=== PATIENT | male | born 1960 | race Caucasian/White ===

== ENCOUNTER → 2016-12-03 | Outpatient (CLI) | payer BC ==
[~2016-12-03] MED LIST: AMLO-114 PO; LOSA1TAB38 PO; LPR25 PO; LSNUNK; METO-551 PO; OMEP40CA PO; RANI300T2 PO; TRAM-10 PO; WLLSR/150 PO
[2016-12-03 16:50] LABS: BASO % 0.6 %; BASO ABS # 0.06 K/uL (0-0.2); COMPLETE YES; EOS % 2.9 %; HEMATOCRIT 44.9 % (42-52); IG% 1.1 %; LYMPH % 26.6 %; LYMPH ABS # 2.53 K/uL (1.2-3.4); MEAN CELL VOLUME 91.1 fL (80-100); MEAN CORPUSCULAR HEMOGLOBIN 31.4 pg (25-34); MEAN CORPUSCULAR HGB CONC 34.5 g/dl (32-36); MEAN PLATELET VOLUME 11.7 fL (7.4-10.4); MONO % 6.2 %; NEUT % 62.6 %; PLATELET COUNT 194 K/uL (130-400); RED BLOOD COUNT 4.93 M/uL (4.7-6.1)
[2016-12-03 17:21] LABS: BLOOD UREA NITROGEN 14 mg/dl (7-18); BUN/CREATININE RATIO 10.8 (10-20); CARBON DIOXIDE 28 mmol/L (21-32); CHLORIDE 106 mmol/L (98-107); GLUCOSE 86 mg/dl (70-99); POTASSIUM 4.1 mmol/L (3.5-5.1); SODIUM 141 mmol/L (136-145)
== END | disposition home or self-care (01) ==
LOC: C.CPL 15:31
PROVIDERS: ATTEND Otolaryngology
DX: Z01.810 Encounter for preprocedural cardiovascular examination (principal); Z01.812 Encounter for preprocedural laboratory examination; I10 Essential (primary) hypertension

== ENCOUNTER 2016-12-05 09:53 | Day surgery (SDC) | payer BC ==
[2016-12-04 08:02] VITALS: BMI 34.0
--- NOTE | 2016-12-04 21:46 | HISTORY & PHYSICAL EXAMINATION ---
DATE OF ADMISSION: 12/05/2016 DIAGNOSIS: Chronic sinusitis and eustachian tube dysfunction. HISTORY OF PRESENT ILLNESS: This 56-year-old gentleman has been followed by me for the last 3 years because of recurrent acute episodes of sinusitis, treated with multiple antibiotics and prednisone. He continues to have sinus infections and desires definitive treatment. He previously had balloon sinuplasty by me in the office 3 years ago with temporary improvement in symptoms, but now he again has recurrent acute sinusitis. PAST MEDICAL HISTORY: Medical problems: Hypertension. MEDICATIONS: None. PREVIOUS SURGERIES: Cholecystectomy. ALLERGIES: TO OXYCONTIN. FAMILY HISTORY: Negative. SOCIAL HISTORY: Negative. REVIEW OF SYSTEMS: Positive for back pain, acid reflux and hiatal hernia. PHYSICAL EXAMINATION: GENERAL: WNWD, male. VITAL SIGNS: 6 feet 1 inch, 260 pounds. HEAD: Normocephalic. EYES: Normal. EARS: Tympanic membranes intact. NOSE: Nasal passages show swollen turbinates. THROAT: Oropharynx normal. NECK: Supple. HEART: RRR. LUNGS: Clear. ABDOMEN: Soft. GENITOURINARY: Deferred. EXTREMITIES: Full range of motion. IMPRESSION: Recurrent acute sinusitis. PLAN: For endoscopic sinus surgery and also eustachian tube ballooning will be performed to alleviate the eustachian tube obstruction.
[~2016-12-05] VITALS: Ht 185.4 cm; Wt 118.2 kg
[~2016-12-05 09:53] MED LIST changes: +CEFAZOLIN 2000 MG/60 ML D5W IV SCH; +LACTATED RINGER'S 1000ML 1,000 ML IV SCH; -LSNUNK; +OXYMETAZOLINE HCL 0.05% NA SPR 15 ML BTL SCH; -TRAM-10 PO
[2016-12-05 10:11] VITALS: BP 121/76; PULSE 65; TEMP 36.5; O2SAT 94; Ht 185.4 cm; Wt 118.2 kg
[2016-12-05] MEDS ORDERED: BACITRACIN OINT 15 GM TUBE ONE (11:09)
[2016-12-05] MEDS ORDERED: GELATIN SPONGE 12-7MM ONE (11:09)
[2016-12-05] MEDS ORDERED: TRIAMCINOLONE ACET 40 MG/ML VIAL ONE (11:09)
[2016-12-05] MEDS ORDERED: EpINEphrine INJ 1MG/ML AMP 1 MG/ML AMP ONE (11:10)
[2016-12-05] MEDS ORDERED: LIDOCAINE 4% W/AFRIN NASAL SOLN 4ML ONE (11:10)
[2016-12-05] MEDS ORDERED: SCOPOLAMINE 1.5 MG TDSY TD ONE ×2 (11:21→11:30)
[2016-12-05] MEDS ORDERED: ONDANSETRON INJ 2 MG/ML 2 ML VIAL IV PRN ×2 (11:30→14:30)
[2016-12-05] MEDS ORDERED: LABETALOL HCL IV 5 MG/ML 20ML IV PRN (11:30)
[2016-12-05] MEDS ORDERED: ATROPINE SULFATE 0.1 MG/ML 5ML SYR IV PRN (11:30)
[2016-12-05] MEDS ORDERED: MIDAZOLAM HCL 1 MG/ML 2ML VIAL ONE (11:38)
[2016-12-05] MEDS ORDERED: FENTANYL CITRATE INJ 50 MCG/1 ML 2 ML VIAL ONE ×2 (11:38→12:56)
[2016-12-05] MEDS ORDERED: NEOSTIGMINE METHYLSULFATE 5 MG/5 ML SYR ONE (11:38)
[2016-12-05] MEDS ORDERED: LIDOCAINE HCL 2% 2 ML VIAL (20MG/ML) ONE (11:38)
[2016-12-05] MEDS ORDERED: GLYCOPYRROLATE INJ 0.2 MG/ML VIAL ONE (11:38)
[2016-12-05] MEDS ORDERED: ROCURONIUM BROMIDE 10 MG/ML 5 ML VIAL ONE (11:38)
[2016-12-05] MEDS ORDERED: ONDANSETRON INJ 2 MG/ML 2 ML VIAL ONE (11:38)
[2016-12-05] MEDS ORDERED: DEXAMETHASONE SOD INJ 4 MG/ML VIAL ONE (11:38)
[2016-12-05] MEDS ORDERED: PROPOFOL IV EMULSION 10 MG/ML 20 ML VIAL IV ONE (11:38)
--- NOTE | 2016-12-05 12:24 | History & Physical Bridge Note ---
H&P Re-Evaluation Bridge Note: I have examined the patient, reviewed the History & Physical and in the interval since the performance of the History & Physical I have noted the following changes of clinical significance: No changes noted
[2016-12-05] MEDS ORDERED: LIDOCAINE 2% W/EPI 1:100,000 20ML VIAL INJ ONE (14:12)
[2016-12-05] MEDS ORDERED: SODIUM CHLORIDE 0.9% 1000ML 1,000 ML IV SCH (14:21)
[2016-12-05] MEDS ORDERED: TRAM-10 PO (14:23)
--- NOTE | 2016-12-05 14:24 | Discharge Instructions-SurgCtr ---
Discharge Instructions Date of Service Dec 05, 2016. Visit Reason for Visit: Chronic Sinusitis, Eustachian Tube Obstruction Discharge Discharge Diagnosis / Problem: same Discharge Goals Goal(s): Improve function, Improve disease control Activity Recommendations Activity Limitations: resume your previous activity Anesthesia . Post Anesthesia Instructions: If you have had General Anesthesia or IV Sedation: * Do not drive today. * Resume driving when surgeon permits. * Do not make important decisions or sign legal documents today. * Call surgeon for: 1. Temperature elevations greater than 101 degrees F. 2. Uncontrollable pain. 3. Excessive bleeding. 4. Persistent nausea and vomiting. 5. Medication intolerance (nausea, vomiting or rash). * For nausea and vomiting use only clear liquids such as: tea, soda, bouillon until nausea subsides, then gradually increase diet as tolerated. * If you have any concerns or questions, call your surgeon's office. If physician is unavailable and it is an emergency, call 911 or go to the nearest emergency room. . Instructions / Follow-Up Instructions / Follow-Up ACTIVITY RECOMMENDATIONS: * Being up and around is good, but no strenuous activity, heavy lifting or physical exertion for one week. * Keep your head elevated 30 degrees when lying down or sleeping. * Do not blow your nose for 48 hours, sniff back instead. * Avoid hot showers. OVER THE COUNTER MEDICATIONS: * You may use Tylenol * Avoid aspirin or aspirin containing products, e.g. as they may increase bleeding. SPECIAL CARE INSTRUCTIONS: * Expect to have bloody drainage from your nose and/or down your throat for one to three days. Change drip pad as needed. * Begin irrigating your nose with saline solution today, at least six to ten times per day and sniff back to help remove old clots or crust. * You may experience nasal and facial congestion, pain and pressure, this is normal. * Please call with any significant and/or progressive pain, redness, swelling around the eyes, visual changes, fever of 101.5 degrees F, active bleeding or any problems or concerns. * If active bleeding occurs, spray the nose three times at one minute intervals with Afrin spray and call or cell phone: . If unable to reach the doctor, go to the nearest Emergency Department. Special Diet: * Avoid extremely hot fluids. FOLLOW UP VISIT: Follow-up Visit with Dr. Weems If not already scheduled, please call to schedule. Diet Recommendations Home Diet: no limitations Procedures Procedures Performed: Right and Left Frontal, Right and Left Total Ethmoid, Right and Left Maxillary Sinusotomy Endoscopic Sinus Surgery; Balloon Eustachian Tubes Pending Studies Studies pending at discharge: no Medical Emergencies . Who to Call and When: Medical Emergencies: If at any time you feel your situation is an emergency, please call 911 immediately. . Non-Emergent Contact Non-Emergency issues call your: Primary Care Provider . . "Provider Documentation" section prepared by Traci Weems. [place] Drug Monitoring Program Search Results: no issues identified
[2016-12-05] MEDS ORDERED: ALBUTEROL HFA INHALER 8.5 GM INH ONE (14:27)
[2016-12-05] MEDS: FENTANYL CITRATE INJ 50 MCG/1 ML 2 ML VIAL IV PRN ×5 (14:32→14:52)
--- NOTE | 2016-12-05 14:52 | OPERATIVE REPORT ---
DATE OF OPERATION: 12/05/2016 PREOPERATIVE DIAGNOSIS: Chronic sinusitis and eustachian tube dysfunction. POSTOPERATIVE DIAGNOSIS: Same. PROCEDURE: Right and left frontal, right and left total ethmoid and right and left maxillary sinus antrostomies with ballooning of the eustachian tubes. SURGEON: Dr. Weems. ANESTHESIA: General endotracheal. COMPLICATIONS: None. BLOOD LOSS: 50 mL. HISTORY OF PRESENT ILLNESS: A 56-year-old gentleman with recurrent acute sinusitis treated with multiple antibiotics without response for the last 2-3 years. He also has blockage of the eustachian tubes. PROCEDURE: The patient was brought to the operating room and placed in supine position. General endotracheal anesthesia was induced. Prepped Betadine paint and draped in usual sterile manner. Nose decongested using topical cottonoids with a solution of 4 mL of 4% Xylocaine with 1 mL of epinephrine. Injection of 2% Xylocaine 1:1,000 strength epinephrine was also used. dig[employer] device calibrated and used for the entire procedure. The right maxillary sinus cannulated with guidewire and dilated using the 6 mm balloon as was the left maxillary sinus. At this point, the left nasofrontal duct was cannulated with the guidewire with [employer] computer guidance and dilated using the 6 mm balloon. The guidewire was left in place as a marker. Frontal sinusotomy was performed with the shaver coupled with the [employer] device, removing the anterior wall, then the posterior wall of the agger nasi cell and then opening up the nasofrontal duct by removing the posterior superior wall of the agger nasi cell leaving the mucosa in the nasofrontal duct intact. The nasofrontal duct was redilated using the 6 mm balloon. At this point, total ethmoidectomy was performed opening up the bullae ethmoidalis going through the ground lamella into the posterior ethmoid air cells, delineating the posterior most ethmoid air cell and identifying the skull base and lamina papyracea with the [employer] device following these structures anteriorly exonerating all the posterior and then all the anterior ethmoid air cells up to the previously dilated nasofrontal duct. Maxillary sinus was opened by removing polypoid tissue at its posterior border of the dilated maxillary sinus opening. The right frontal sinusotomy, total ethmoidectomy and maxillary sinus antrostomy performed in similar manner. Propel stents were placed. The same 6 mm balloon was used to dilate both eustachian tubes dilating the eustachian tube to 12 atmospheres of pressure at 1 minute on each side. The patient tolerated the procedure well and was taken to recovery area in satisfactory condition. I attest to the content of the Intraoperative Record and any orders documented therein. Any exceptio ns are noted below.
--- NOTE | 2016-12-05 15:06 | Anesthesiology Progress Note ---
Anesthesia Post Op Note Date & Time Dec 05, 2016 at 15:06 Vital Signs Pain Intensity: 2 Vital Signs Past 12 Hours Date Time Temp Pulse Resp B/P Pulse Ox O2 Delivery O2 Flow Rate FiO2 12/05/16 14:45 95 Nasal Cannula 2 12/05/16 14:25 36.2 112 16 131/85 95 Mask 10 12/05/16 10:11 36.5 65 20 121/76 94 Room Air Notes Mental Status: alert / awake / arousable, participated in evaluation Pt Amnestic to Procedure: Yes Nausea / Vomiting: adequately controlled Pain: adequately controlled Airway Patency, RR, SpO2: stable & adequate BP & HR: stable & adequate Hydration State: stable & adequate Anesthetic Complications: no major complications apparent
[2016-12-05 15:20] VITALS: BP 127/72; PULSE 88; TEMP 36.5; O2SAT 96
[2016-12-05 15:50] VITALS: BP 144/91; PULSE 88; O2SAT 95
[2016-12-05 16:20] VITALS: BP 143/84; PULSE 88; TEMP 36.6; O2SAT 92
[2016-12-05] MEDS ORDERED: TRAMADOL HCL 50 MG TAB ONE (16:39)
[2016-12-05] MEDS ORDERED: NURSING VERBAL MED ORDER ONE (18:00)
== END 2016-12-05 16:50 | disposition home or self-care (01) ==
LOC: C.ACU 09:53
PROVIDERS: ATTEND Otolaryngology
DX: J32.9 Chronic sinusitis, unspecified (principal); H69.83 Other specified disorders of Eustachian tube, bilateral; I10 Essential (primary) hypertension; Z98.890 Other specified postprocedural states; K21.9 Gastro-esophageal reflux disease without esophagitis